=== PATIENT | male | born 1965 | race Caucasian/White ===

== ENCOUNTER 2019-07-14 15:58 | Inpatient (IN) | payer MEDICAID ==
[~2019-07-14] VITALS: Ht 177.8 cm; Wt 75.1 kg
[~2019-07-14 15:58] MED LIST: PERCOCET 5-3251 EACH
[2019-07-14 16:04] VITALS: BP 124/97
[2019-07-14] MEDS ORDERED: KLOR-CON M2020 MEQ PO (16:10)
[2019-07-14] MEDS ORDERED: SPIRONOLACTONE25 MG PO (16:10)
[2019-07-14] MEDS ORDERED: LOVASTATIN 20 M20 MG PO (16:11)
[2019-07-14 16:23] LABS: HEMATOCRIT 43.6 % (42.0-52.0); HEMOGLOBIN 14.6 gm/dL (14.0-18.0); MCH 30.6 pg (26.0-34.0); MCHC 33.6 g/dL (28.0-37.0); MCV 91.3 fL (80.0-100.0); MPV 9.5 fl. (7.2-11.1); NUCLEATED RBCS 0 /100WBC; PLATELET COUNT* 132 thou/uL (150-400); RBC 4.77 mil/uL (4.50-6.00); RDW-CV 17.1 % (10.5-14.5); WBC 5.9 thou/uL (4.0-11.0)
[2019-07-14 16:32] LABS: CALCIUM 8.5 mg/dL (8.5-10.1); CREATININE 1.3 mg/dL (0.6-1.3); POTASSIUM 4.7 mmol/L (3.5-5.1)
[2019-07-14 16:34] LABS: APTT 27.1 Seconds (25.0-31.3); INR 1.2; PROTIME 11.9 Seconds (9.20-11.50)
[2019-07-14 16:46] LABS: ALBUMIN 3.2 g/dL (3.4-5.0); CK-MB MASS 2.5 ng/mL (<0.5-3.6); MAGNESIUM 1.6 mg/dL (1.8-2.4); TOTAL BILIRUBIN 1.2 mg/dL (<0.1-1.0); TOTAL PROTEIN 7.1 g/dL (6.4-8.2)
[2019-07-14 17:08] LABS: ABSOLUTE EOSINOPHILS 0.4 thou/uL (0.0-0.7); ABSOLUTE LYMPHOCYTES 1.2 thou/uL (0.8-5.3); ABSOLUTE MONOCYTES 0.7 thou/uL (0.0-1.2); ABSOLUTE NEUTROPHILS 3.6 thou/uL (1.6-8.1); ATYPICAL LYMPHS 18 %; PLATELET ESTIMATE ADEQUATE
[2019-07-14 18:25] VITALS: BP 125/80
[2019-07-14 18:52] VITALS: BP 122/89
--- NOTE | 2019-07-14 18:55 | NUR ---
VSS, ASSUMED CARE OF PT FROM ER, ASSESSMENT PRFORMED, BUT HAVE ONLY CHARTED, ON H&P, PART 3 ASSESSMENT CHARTING LEFT FOR NIGHT RN, PT IS A&O4 AND UP ADLIB, DENIES ANY PAIN, IS TRACING SR ON THE MONITOR, WILL FOLLOW WITH PLAN OF CARE,
[2019-07-14 20:00] VITALS: BP 127/88
[2019-07-15 00:48] VITALS: BP 130/91
[2019-07-15 04:00] VITALS: BP 140/103
--- NOTE | 2019-07-15 05:10 | NUR ---
PT HAS BEEN ABLE TO EXPRESS HIS NEEDS TO STAFF EFFECTIVELY UP TO THIS TIME. HE HAS DENIED THE NEED FOR PAIN MEDICATION UP TO THIS TIME. HE HAS BEEN NPO SINCE MIDNIGHT, EXCEPT FOR SIPS WITH MEDS, FOR A CARDIOLOGY CONSULT THIS MORNING. BP HIGH THIS AM; PAGED WITH ORDER RECEIVED PENDING PHARMACY VERIFICATION.
[2019-07-15 05:22] LABS: CALCIUM 9.5 mg/dL (8.5-10.1); CREATININE 1.5 mg/dL (0.6-1.3); MAGNESIUM 1.7 mg/dL (1.8-2.4); POTASSIUM 4.7 mmol/L (3.5-5.1)
[2019-07-15 08:27] VITALS: BP 128/97
--- NOTE | 2019-07-15 11:13 | NUR ---
Pt is A&O. Resides at home with his family. Independent. Pt uses a cane for mobility. Pt states that he also has a Life Vest. No hx of HH or SNF. Goal is home at in, no needs anticipated. Following.
[2019-07-15 11:51] VITALS: BP 113/76
--- NOTE | 2019-07-15 13:20 | NUR ---
VSS, ASSUMED CARE IN THE AM, ASSESSMENT PERFORMED AND CHARTED, FALL PRECAUTIONS IN PLACE AND CALL LIGHT IN REACH, PT IS A&O4 UP AD JORGE, AND DENIES ANY PAIN, PT IS ON RA, TRACING SR WITH BBB, PT GOLA IS TO MEET WITH [facility] AND TKAE EXTRA FLUID OFF BODY, WILL FOLLOW WITH PLAN OF CARE.
--- NOTE | 2019-07-15 13:31 | EKG ---
[place] [address] ELECTROCARDIOGRAM REPORT Name: PERCY RODRIGUEZ Room: [address] ADM IN M.R.#: [id number] Admission: 07/14/19 Attend Phys: Rick Baxter Discharge: Date of : 67 Report #: [id number] THIS REPORT FOR: //name// [facility] ED Test Date: 2019-07-14 Test Time: 16:02:03 Pat Name: PERCY RODRIGUEZ Department: Room: [facility] Gender: M Customer Orders Clerk: NIKKI : 1965 Requested By: Khai Still Order Number: [id number] MD: Pedro Godoy Measurements Intervals [place] Rate: 99 P: 81 ME: 171 QRS: 146 QRSD: 157 T: -52 QT: 423 QTc: 543 Interpretive Statements Sinus rhythm Left bundle-branch block No previous ECG available for comparison Electronically Signed On 07-15-2019 13:31:15 CDT by Pedro Godoy [email or web address] <ELECTRONICALLY SIGNED> By: Pedro Godoy MD, [facility] 07/15/19 1331 D: [id number] 01 Pedro Godoy MD, FACC /EPI
[2019-07-15 16:00] VITALS: BP 98/67
[2019-07-15 20:00] VITALS: BP 118/84
[2019-07-16] VITALS (9 sets, daily range): BP systolic 67–120; BP diastolic 50–87
--- NOTE | 2019-07-16 05:02 | NUR ---
ASSUMED PT CARE AT APPROX 1930. PT IS AWAKE AND ORIENTED X4. VSS ON ROOM AIR. 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 ASSESSMENT DONE AND CHARTED. PT C/O GUM AND TEETH PAIN RELIEVED BY PAIN MEDS GIVEN PER NOV. PT REPORTED RELIEF. CALL LIGHT WITHIN REACH. HOURLY ROUNDING DONE FOR PT SAFETY.
[2019-07-16 05:44] LABS: CALCIUM 8.5 mg/dL (8.5-10.1); CREATININE 1.3 mg/dL (0.6-1.3); MAGNESIUM 1.9 mg/dL (1.8-2.4); POTASSIUM 3.8 mmol/L (3.5-5.1)
--- NOTE | 2019-07-16 07:10 | NUR ---
CHANGE OF SHIFT, BEDSIDE REPORT GIVEN PATIENT SEEN AT BEDSIDE, IN BED ASLEEP ASSUMED PATIENT CARE
--- NOTE | 2019-07-16 08:18 | CON ---
[address] [address] CONSULTATION Name: PERCY RODRIGUEZ Room: [address] IN M.R.#: [id number] Admission: 07/14/19 Attend Phys: Rick Baxter Discharge: Date of : 67 Report #: [id number] THIS REPORT FOR: //name// CC: Dr. Odalis Lino [facility] physician/PCP Jessica Chairez INDICATION: Acute on chronic heart failure. HISTORY OF PRESENT ILLNESS: The patient is a 54-year-old gentleman with an ejection fraction estimated to be 10%-15%. In 10/2018, he had a stent placed to the LAD. Followup catheterization in November showed the stent to be patent with 20% in-stent restenosis. He did not have significant occlusive disease in his remaining coronary arteries. Stress testing later this year showed a focal inferoapical defect, but no other fixed or reversible defects. He had severe global hypokinesis. Findings possibly suggestive of a nonischemic cardiomyopathy. The patient does have a history of substance abuse including methamphetamine in the past. He is HIV positive. There has been a history of noncompliance with medications. The patient has had increasing shortness of breath, orthopnea and paroxysmal nocturnal dyspnea over the last several days. He was seen in the Emergency Room and felt to be in acute heart failure. He was admitted for further treatment. He denies any chest pain. Troponins have been unremarkable. A recent outside echocardiogram shows an EF of 10%-15% with moderate mitral insufficiency and cardiomegaly. He is without other cardiac complaint at this time. PAST MEDICAL HISTORY: 1. Coronary artery disease as outlined above. 2. Cardiomyopathy, for the most part appears to be a nonischemic myopathy. 3. Hyperlipidemia, on statin agent. 4. HIV positive. 5. History of syphilis. FAMILY HISTORY: The patient's father had cancer. The patient's brother had a heart attack. The patient's mother had breast cancer. SOCIAL HISTORY: The patient is disabled. He is . Drinks alcohol rarely, smokes a pack of cigarettes daily. Has a history of polysubstance abuse. ALLERGIES: None documented. HOME MEDICATIONS: Lovastatin 20 mg daily, potassium chloride 20 mEq daily, spironolactone 25 mg daily, Lasix 20 mg daily, Percocet 5/325 [place] [address] CONSULTATION Name: PERCY RODRIGUEZ Room: [address]#: [id number] Admission: 07/14/19 Attend Phys: Rick Baxter Discharge: Date of : 67 Report #: [id number] REVIEW OF SYSTEMS: A 14-point review of systems is positive for orthopnea, paroxysmal nocturnal dyspnea, and dyspnea on exertion as well as a recent rash on his back; otherwise, unremarkable. PHYSICAL EXAMINATION: VITAL SIGNS: Blood pressure 128/97, pulse 92 and regular. GENERAL: This is a thin, pleasant gentleman in no distress. Mood and affect appropriate. HEENT: The patient is wearing glasses. Extraocular muscles intact. Mucous membranes are moist. NECK: Shows no jugular venous distention. There are no carotid bruits. CHEST: Reveals clear lung ricardo. CARDIOVASCULAR: Reveals a regular rhythm. I do not appreciate gallop or murmur. ABDOMEN: Reveals normal bowel sounds. The abdomen is soft, nontender. EXTREMITIES: Shows no edema. Peripheral pulses palpable. SKIN: Dry. A 12-lead EKG shows sinus tachycardia with left bundle branch block. LABORATORY DATA: Reviewed. White blood cell count 5.9, hemoglobin 14.6, platelet count 132,000. Electrolytes within normal limits. BUN 22, creatinine 1.5, serum glucose 95. Troponins less than 0.06 on 3 separate occasions. Chest x-ray shows cardiomegaly without obvious pulmonary vascular congestion. IMPRESSION AND RECOMMENDATIONS: 1. Acute on chronic systolic heart failure. The patient has responded nicely to IV Lasix. We will adjust heart failure medications. At this point, I would like to start Entresto 24/26 mg 1 tablet daily. I will continue his carvedilol at reduced dose of 3.125 mg twice daily. Will likely need increased dose of Lasix on discharge of approximately 40 mg. Continue spironolactone at 25 mg. 2. Coronary artery disease with stenting in 10/2018. Continue Plavix and aspirin. Stress testing after recent stenting shows a focal inferoapical defect with no other evidence of infarct or ischemia. 3. Hyperlipidemia. Continue statin agent. 4. Tobacco use. Smoking cessation advised. 5. Human immunodeficiency virus positive per primary physician. <ELECTRONICALLY SIGNED> By: Pedro Godoy MD, FACC 07/16/19 0818 1126 [id number] Noel Godoy MD, FACC /nt
[2019-07-16] MEDS ORDERED: NITROGLYCERIN0.4 MG SUBLING (09:52)
[2019-07-16] MEDS ORDERED: LASIX 40 MG TAB40 MG PO (09:53)
[2019-07-16] MEDS ORDERED: LISINOPRIL2.5 MG PO (09:54)
[2019-07-16] MEDS ORDERED: PLAVIX 75 MG TA75 MG PO (09:55)
[2019-07-16] MEDS ORDERED: SYMTUZA 800-151 EACH PO (09:56)
--- NOTE | 2019-07-16 13:26 | NUR ---
Met with patient to discuss heart failure medication. Discussion focused primarily on furosemide, carvedilol and sacubitril/valsartan. We reviewed rationale for therapy and importance of compliance with regimen prescribed. We reviewed possible side effects and potential management strategies. Pt expressed understanding of issues discussed. Left medication information sheet with patient. Provided pharmacy contact information for any further questions or issues. thank you.
--- NOTE | 2019-07-16 16:00 | NUR ---
DR KENNY RETURNED CALL REGARDING PENDING DISCHARGE ORDERS TO KEEP PATIENT UNTIL TOMORROW
[2019-07-17] VITALS: BP 90/66
[2019-07-17 04:00] VITALS: BP 106/78
--- NOTE | 2019-07-17 04:29 | NUR ---
ASSUMED PT CARE AT APPROX 1930. PT IS AWAKE AND ORIENTED X4. VSS ON ROOM AIR. 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 PT DENIES PAIN OF THIS TIME. ASSESSMENT DONE AND CHARTED. PT IS ABLE TO SLEEP MOST OF THE NIGHT. CALL LIGHT WITHIN REACH. HOURLY ROUNDING DONE FOR PT SAFETY.
[2019-07-17 08:00] VITALS: BP 94/60
[2019-07-17] MEDS ORDERED: CARVEDILOL3.125 MG PO (09:14)
[2019-07-17] MEDS ORDERED: ENTRESTO 24 MG1 EACH PO (09:14)
[2019-07-17] MEDS ORDERED: ATORVASTATIN CA20 MG PO (09:14)
[2019-07-17 09:24] LABS: CALCIUM 8.8 mg/dL (8.5-10.1); CREATININE 1.3 mg/dL (0.6-1.3); MAGNESIUM 1.7 mg/dL (1.8-2.4); POTASSIUM 3.9 mmol/L (3.5-5.1)
--- NOTE | 2019-07-17 13:05 | NUR ---
ASSUMED PT CARE AT 0730. ASSESSMENT COMPLETED CHARTED. ABLE TO MAKE NEEDS KNOWN. UP AD JORGE IN ROOM. NO C/O PAIN OR DISCOMFORT. RESTING IN BED MOST OF THE DAY. PT DISCHARGE APPROVED, GAVE DISCHARGE PAPERWORK, TOOK OUT IV, OFF HEART MONITOR. PT WALKED OUT OF HOSPITAL WITHOUT GETTING NURSES HELP. NO COMMENTS, QUESTIONS, OR CONCERNS.
== END 2019-07-17 12:30 | disposition home or self-care (01) | DRG 292 ==
LOC: M.ERS 15:58 → M.2W 16:56 → M.TBA-ER 16:56 → M.2W 18:27
PROVIDERS: Family Medicine; Internal Medicine; ADMIT Internal Medicine
DX: I50.23 Acute on chronic systolic (congestive) heart failure (principal); I42.9 Cardiomyopathy, unspecified; E78.00 Pure hypercholesterolemia, unspecified; F17.210 Nicotine dependence, cigarettes, uncomplicated; I25.10 Atherosclerotic heart disease of native coronary artery without angina pectoris; E78.5 Hyperlipidemia, unspecified; Z21 Asymptomatic human immunodeficiency virus [HIV] infection status; I95.9 Hypotension, unspecified; Z79.899 Other long term (current) drug therapy; Z82.49 Family history of ischemic heart disease and other diseases of the circulatory system; Z80.8 Family history of malignant neoplasm of other organs or systems; Z71.6 Tobacco abuse counseling; Z95.5 Presence of coronary angioplasty implant and graft; Z28.21 Immunization not carried out because of patient refusal

== ENCOUNTER 2019-10-27 15:09 | Inpatient (IN) | payer MEDICAID ==
[~2019-10-27] VITALS: Ht 182.9 cm; Wt 78.5 kg
[~2019-10-27 15:09] MED LIST changes: +ATORVASTATIN CA20 MG PO; +CARVEDILOL3.125 MG PO; +ENTRESTO 24 MG1 EACH PO; +KLOR-CON M2020 MEQ PO; +LASIX 40 MG TAB40 MG PO; +LISINOPRIL2.5 MG PO; +LOVASTATIN 20 M20 MG PO; +NITROGLYCERIN0.4 MG SUBLING; +PLAVIX 75 MG TA75 MG PO; +SPIRONOLACTONE25 MG PO; +SYMTUZA 800-151 EACH PO
[2019-10-27 15:19] VITALS: BP 131/100
[2019-10-27 15:49] LABS: HEMATOCRIT 45.1 % (42.0-52.0); HEMOGLOBIN 15.5 gm/dL (14.0-18.0); MCH 30.6 pg (26.0-34.0); MCHC 34.3 g/dL (28.0-37.0); MCV 89.2 fL (80.0-100.0); MPV 8.9 fl. (7.2-11.1); NUCLEATED RBCS 0 /100WBC; PLATELET COUNT* 118 thou/uL (150-400); RBC 5.06 mil/uL (4.50-6.00); WBC 5.3 thou/uL (4.0-11.0)
[2019-10-27 15:58] LABS: APTT 26.1 Seconds (25.0-31.3); CALCIUM 8.3 mg/dL (8.5-10.1); CREATININE 1.3 mg/dL (0.6-1.3); INR 1.1; POTASSIUM 4.2 mmol/L (3.5-5.1); PROTIME 11.1 Seconds (9.20-11.50)
[2019-10-27 16:09] LABS: ALBUMIN 3.2 g/dL (3.4-5.0); TOTAL BILIRUBIN 0.5 mg/dL (<0.1-1.0); TOTAL PROTEIN 7.3 g/dL (6.4-8.2)
[2019-10-27 16:19] LABS: ABSOLUTE BASOPHILS 0.1 thou/uL (0.0-0.2); ABSOLUTE EOSINOPHILS 0.3 thou/uL (0.0-0.7); ABSOLUTE MONOCYTES 0.8 thou/uL (0.0-1.2); ABSOLUTE NEUTROPHILS 3.1 thou/uL (1.6-8.1); ATYPICAL LYMPHS 8 %
[2019-10-27 16:20] LABS: PLATELET ESTIMATE DECREASED
[2019-10-27 16:55] LABS: SALICYLATE 2.7 mg/dL (2.8-20.0)
[2019-10-27 16:56] LABS: ACETAMINOPHEN < 2 ug/mL (10-30)
[2019-10-27 23:24] VITALS: BP 111/72
[2019-10-28 04:00] VITALS: BP 119/79
[2019-10-28 08:00] VITALS: BP 91/41
[2019-10-28] MEDS ORDERED: BACTRIM DS TAB1 EAC1 PO (08:48)
[2019-10-28 12:13] LABS: CHOLESTEROL 133 mg/dL (<200); HDL CHOLESTEROL 25 mg/dL (>40); LDL CHOLESTEROL 83 mg/dL (<100); TC:HDL 5.3 Ratio (Not establshd); TRIGLYCERIDE 128 mg/dL (<150); VLDL 26 mg/dL (<40)
[2019-10-28 12:14] LABS: SERUM ASSESSMENT Clear
--- NOTE | 2019-10-28 12:47 | EKG ---
[place] [address] ELECTROCARDIOGRAM REPORT Name: PERCY RODRIGUEZ Room: [address] ADM IN .R.#: [id number] Admission: 10/27/19 Attend Phys: Ludwin Hayes, Discharge: Date of : 67 Report #: [id number] THIS REPORT FOR: //name// [facility] ED Test Date: 2019-10-27 Test Time: 15:51:27 Pat Name: PERCY RODRIGUEZ Department: Room: [facility] Gender: M Wind Up Operator: CLYDE : 1965 Requested By: Khai Still Order Number: [id number] MD: Tyson Delgadillo Measurements Intervals [place] Rate: 93 P: 86 MD: 183 QRS: -74 QRSD: 129 T: 99 QT: 402 QTc: 501 Interpretive Statements Sinus rhythm Probable left atrial enlargement Left anterior fasicular block anterior q waves noted Compared to ECG 07/14/2019 16:02:03 No significant changes Electronically Signed On 10-28-2019 12:46:45 GRIEF COUNSELLOR by Tyson Delgadillo [email or web address] <ELECTRONICALLY SIGNED> By: Tyson Delgadillo MD, FACCorey 10/28/19 1246 1551 1551 Tyson Delgadillo MD, [facility] /EPI
--- NOTE | 2019-10-28 15:47 | 2DMMODE ---
[facility] [address] [place] [address] 2 D/M-MODE ECHOCARDIOGRAM Name: PERCY RODRIGUEZ Room: [address] IN [facility]#: [id number] Admission: 10/27/19 Attend Phys: Ludwin Oneal Discharge: Date of : 67 Date of Service: 10/28/19 1547 Report #: [id number] THIS REPORT FOR: //name// APPROVED REPORT Study performed: 10/28/2019 11:48:15 EXAM: Limited 2D Echocardiogram Patient Location: In-Patient Room #: [facility] BSA: 2.03 HR: 65 bpm BP: 96/60 mmHg Other Information Study Quality: Good Indications Dyspnea Left Ventricle Left ventricle is moderately dilated. There is normal left ventricular wall thickness. Left ventricular ejection fraction is severely decreased. LVEF is 15-20%. Right Ventricle Right ventricle is moderately dilated. Atria Left atrium is mildly dilated. Right atrium is mildly dilated. Pulmonic Valve Pulmonic valve is not well visualized. <Conclusion> Left ventricle is moderately dilated. Left ventricular ejection fraction is severely decreased. LVEF is 15-20%. Right ventricle is moderately dilated. [facility] [address] [place] [address] 2 D/M-MODE ECHOCARDIOGRAM Name: PERCY RODRIGUEZ Room: [address] IN [facility].#: [id number] Admission: 10/27/19 Attend Phys: Ludwin Oneal Discharge: Date of : 67 Date of Service: 10/28/19 154 Report #: [id number] Left atrium is mildly dilated. Right atrium is mildly dilated. <ELECTRONICALLY SIGNED> By: Pedro Godoy MD, FACC 10/28/19 1547 46 46 Pedro Godoy MD, FACC /INF
[2019-10-28 16:52] VITALS: BP 111/68
[2019-10-28 20:00] VITALS: BP 100/69
[2019-10-29] VITALS (9 sets, daily range): BP systolic 77–108; BP diastolic 54–79
[2019-10-29 06:53] LABS: HEMATOCRIT 46.8 % (42.0-52.0); HEMOGLOBIN 16.2 gm/dL (14.0-18.0); MCH 30.6 pg (26.0-34.0); MCHC 34.6 g/dL (28.0-37.0); MCV 88.5 fL (80.0-100.0); MPV 8.8 fl. (7.2-11.1); RBC 5.29 mil/uL (4.50-6.00); RDW-CV 15.3 % (10.5-14.5); WBC 13.3 thou/uL (4.0-11.0)
[2019-10-29 07:12] LABS: CALCIUM 7.9 mg/dL (8.5-10.1); CREATININE 1.4 mg/dL (0.6-1.3); MAGNESIUM 1.7 mg/dL (1.8-2.4); POTASSIUM 4.6 mmol/L (3.5-5.1)
[2019-10-29 10:38] LABS: URINE BILIRUBIN NEGATIVE (Negative); URINE BLOOD 3+ (Negative); URINE CLARITY CLEAR; URINE COLOR YELLOW; URINE GLUCOSE-RANDOM NEGATIVE (Negative); URINE KETONES NEGATIVE (Negative); URINE LEUKOCYTES-REFLEX NEGATIVE (Negative); URINE NITRITE-REFLEX NEGATIVE (Negative); URINE PROTEIN NEGATIVE (Negative); URINE UROBILINOGEN 0.2 E.U./dl (0.2-1.0)
[2019-10-29 10:48] LABS: AMP/METHAMP Negative (Negative); BARBITURATES Negative (Negative); BENZODIAZEPINES Negative (Negative); COCAINE Negative (Negative); METHADONE Negative (Negative); OPIATES Negative (Negative); PCP Negative (Negative); THC Negative (Negative)
[2019-10-29 10:52] LABS: BACTERIA-REFLEX 1-9 Few /HPF (None Seen); CASTS None Seen /LPF (None Seen); CRYSTALS None Seen /LPF (None Seen); MUCUS None Seen strn/LPF (None Seen); SQUAMOUS 4-10 Moderate /LPF (0-3); URINE RBC 3-10 Few /HPF (0-2); URINE WBC-REFLEX 0-5 Rare /HPF (0-5)
--- NOTE | 2019-10-29 12:22 | CON ---
[address] [address] CONSULTATION Name: PERCY RODRIGUEZ Room: [address] IN .R.#: [id number] Admission: 10/27/19 Attend Phys: Ludwin Hayes, Discharge: Date of : 67 Report #: [id number] THIS REPORT FOR: //name// CC: [facility] physician/PCP Ludwin Hayes DATE OF SERVICE: 10/28/2019 INFECTIOUS DISEASE CONSULTATION ATTENDING PHYSICIAN: Ludwin Hayes MD REASON FOR EVALUATION: Admitted with progressive dyspnea over the course of the last couple of weeks, was found to be hypoxemic, although chest x-ray was otherwise unremarkable. Of note, he does have a history of HIV diagnosed 15-20 years ago. More recently, over the course of the last several weeks, has had stopped all his medicines. He notes he typically has a low CD4 count, although he often with treatment has a nondetectable viral load. Due to depression, he stopped not only his antiviral medicines, also he has had known history of coronary artery disease with previous myocardial infarction, has cardiomyopathy, and is felt to have a component of congestive heart failure as well as a contributing factor to the dyspnea. He has been diuresed. He is not encephalopathic at this time. Denies any significant abdominal-related complaints. He notes he does have a recent weight gain, which he attributed in part to increasing p.o. intake. He attributes some degree of anorexia to his medical regimen. Additionally, has a history of syphilis. He describes being hospitalized, treated with IV penicillin. He noted followup studies that were still elevated. He has not pursued since that time. He does have a penile lesion, anal bumps as well without recent sexual activity. ALLERGIES: None known. MEDICATIONS: Include sacubitril-valsartan combination, atorvastatin, trimethoprim-sulfamethoxazole 1 daily, furosemide, famotidine, carvedilol, Symtuza, clopidogrel, spironolactone, p.r.n. analgesics and antiemetics. He is on doxycycline as well. PAST MEDICAL HISTORY: As described above, HIV, I think at some point likely had age-related infection, coronary artery disease with previous stenting, has cardiomyopathy. SOCIAL HISTORY: Smokes cigarettes. No ethanol. Has used marijuana previously. FAMILY HISTORY: Noncontributory. REVIEW OF SYSTEMS: [place] [address] CONSULTATION Name: PERCY RODRIGUEZ Room: [address]#: [id number] Admission: 10/27/19 Attend Phys: Ludwin Hayes, Discharge: Date of : 67 Report #: [id number] PHYSICAL EXAMINATION: GENERAL: He is alert, cooperative, appropriate, is not overtly distressed, appears reasonably well nourished. VITAL SIGNS: Temperature 98.1, pulse 65, respirations 16, blood pressure 196/60. SKIN: Warm, dry. No rashes. HEENT: Normocephalic. Extraocular muscles intact. NECK: Supple. LUNGS: Scattered coarse breath sounds. HEART: Regular. I do not appreciate a murmur. ABDOMEN: Soft, nontender, nondistended. EXTREMITIES: No cyanosis. LABORATORY DATA: Chest x-ray second of two shows no acute process. TSH elevated at 7.072. Blood cultures sterile thus far. Troponin level less than 0.06 serially in the course of three. CBC: White count of 5.3, H and H of 15.5 and 45.1, platelets of 118. Differential generally unremarkable. Electrolytes: Sodium 137, potassium 4.2, chloride 105, bicarbonate 26, anion gap of 6, BUN and creatinine of 17 and 1.3, glucose of 133. Albumin 3.2, total protein 7.3, estimated GFR 58. LFTs unremarkable. Lactic acid 1.3. ASSESSMENT AND PLAN: Respiratory distress secondary to lower respiratory tract infection, certainly was clearly worse, may be a combination of volume excess as well in terms of the human immunodeficiency virus. We will try to obtain records from [facility]. Do additional labs including CD4 count, syphilis. He notes he was successfully treated for hepatitis C as well. See how he does clinically over the course of next 24-48 hours. His results are pending as well. <ELECTRONICALLY SIGNED> By: Miah Matamoros MD 10/29/19 1222 1238 1448Joebony Matamoros MD /nt
[2019-10-30] VITALS: BP 82/59
[2019-10-30 00:16] LABS: INFLUENZA A ANTIGEN Negative (Negative); INFLUENZA B ANTIGEN Negative (Negative)
[2019-10-30 04:00] VITALS: BP 90/63
[2019-10-30 05:59] LABS: HEMATOCRIT 51.4 % (42.0-52.0); HEMOGLOBIN 17.4 gm/dL (14.0-18.0); MCH 30.2 pg (26.0-34.0); MCHC 33.8 g/dL (28.0-37.0); MCV 89.2 fL (80.0-100.0); MPV 9.1 fl. (7.2-11.1); RBC 5.76 mil/uL (4.50-6.00); RDW-CV 15.1 % (10.5-14.5); WBC 8.3 thou/uL (4.0-11.0)
[2019-10-30 06:03] LABS: CALCIUM 7.9 mg/dL (8.5-10.1); CREATININE 1.6 mg/dL (0.6-1.3); MAGNESIUM 1.7 mg/dL (1.8-2.4)
[2019-10-30 08:00] VITALS: BP 86/65
[2019-10-30 12:00] VITALS: BP 73/48
[2019-10-30 13:28] VITALS: BP 92/61
[2019-10-30 19:40] VITALS: BP 88/58
[2019-10-31] VITALS: BP 103/70
[2019-10-31 05:39] LABS: CALCIUM 7.9 mg/dL (8.5-10.1); CREATININE 1.7 mg/dL (0.6-1.3); POTASSIUM 4.8 mmol/L (3.5-5.1)
[2019-10-31 08:00] VITALS: BP 94/66
[2019-10-31] MEDS ORDERED: ASA81BEC PO (11:38)
[2019-10-31 11:42] VITALS: BP 94/64
[2019-10-31] MEDS ORDERED: DORYX MPC120 MG PO (11:43)
== END 2019-10-31 13:20 | disposition home health service (06) | DRG 291 ==
LOC: M.ERS 15:09 → M.2W 17:12 → M.TBA-ER 17:12 → M.2W 22:16
PROVIDERS: Family Medicine; Internal Medicine; Physician Assistant; Registered Nurse; ADMIT Family Medicine
DX: I11.0 Hypertensive heart disease with heart failure (principal); J96.01 Acute respiratory failure with hypoxia; N17.9 Acute kidney failure, unspecified; B20 Human immunodeficiency virus [HIV] disease; F32.9 Major depressive disorder, single episode, unspecified; I50.23 Acute on chronic systolic (congestive) heart failure; I25.10 Atherosclerotic heart disease of native coronary artery without angina pectoris; F12.90 Cannabis use, unspecified, uncomplicated; F17.210 Nicotine dependence, cigarettes, uncomplicated; E78.5 Hyperlipidemia, unspecified; I42.8 Other cardiomyopathies; I27.20 Pulmonary hypertension, unspecified; I34.0 Nonrheumatic mitral (valve) insufficiency; N48.9 Disorder of penis, unspecified; E87.5 Hyperkalemia; I95.9 Hypotension, unspecified; Z79.899 Other long term (current) drug therapy; Z91.19 Patient's noncompliance with other medical treatment and regimen; I25.2 Old myocardial infarction; Z95.5 Presence of coronary angioplasty implant and graft

== ENCOUNTER 2019-12-30 12:38 | Inpatient (IN) | payer MEDICAID ==
[~2019-12-30] VITALS: Ht 180.3 cm; Wt 87.0 kg
[~2019-12-30 12:38] MED LIST changes: +ASA81BEC PO; +BACTRIM DS TAB1 EAC1 PO; +DORYX MPC120 MG PO
[2019-12-30 12:44] VITALS: BP 122/92
[2019-12-30 13:22] LABS: ABSOLUTE BASOPHILS 0.1 thou/uL (0.0-0.2); ABSOLUTE EOSINOPHILS 0.4 thou/uL (0.0-0.7); ABSOLUTE LYMPHOCYTES 0.8 thou/uL (0.8-5.3); ABSOLUTE MONOCYTES 1.7 thou/uL (0.0-1.2); ABSOLUTE NEUTROPHILS 6.8 thou/uL (1.6-8.1); BASOPHILS 1.1 %; EOSINOPHILS 3.9 %; HEMATOCRIT 43.3 % (42.0-52.0); HEMOGLOBIN 15.1 gm/dL (14.0-18.0); LYMPHOCYTES 7.8 %; MCH 31.1 pg (26.0-34.0); MCHC 34.9 g/dL (28.0-37.0); MCV 88.9 fL (80.0-100.0); MONOCYTES 17.4 %; MPV 7.7 fl. (7.2-11.1); NUCLEATED RBCS 0 /100WBC; PLATELET COUNT* 254 thou/uL (150-400); POLYS 69.8 %; RBC 4.87 mil/uL (4.50-6.00); RDW-CV 16.7 % (10.5-14.5); WBC 9.7 thou/uL (4.0-11.0)
[2019-12-30 13:27] LABS: CALCIUM 8.2 mg/dL (8.5-10.1); CREATININE 1.4 mg/dL (0.6-1.3); POTASSIUM 4.2 mmol/L (3.5-5.1)
[2019-12-30 13:30] LABS: APTT 27.2 Seconds (25.0-31.3); PROTIME 10.2 Seconds (9.20-11.50)
[2019-12-30 13:41] LABS: ALBUMIN 3.1 g/dL (3.4-5.0); CK-MB MASS 2.7 ng/mL (<0.5-3.6); MAGNESIUM 1.4 mg/dL (1.8-2.4); TOTAL BILIRUBIN 0.5 mg/dL (<0.1-1.0); TOTAL PROTEIN 7.6 g/dL (6.4-8.2)
--- NOTE | 2019-12-30 15:39 | EKG ---
[place] [address] ELECTROCARDIOGRAM REPORT Name: PERCY RODRIGUEZ Room: [facility]#: [id number] Admission: 12/30/19 Attend Phys: Discharge: Date of : 67 Date of Service: 12/30/19 1245 Report #: [id number] THIS REPORT FOR: //name// [facility] ED Test Date: 2019-12-30 Test Time: 12:45:31 Pat Name: PERCY RODRIGUEZ Department: Room: Gender: Internship: CLYDE : 1965 Requested By: Nilesh Bee Order Number: [id number] MD: Pedro Godoy Measurements Intervals [place] Rate: 108 P: 86 SD: 162 QRS: -70 QRSD: 139 T: 105 QT: 382 QTc: 512 Interpretive Statements Sinus tachycardia Probable left atrial enlargement Left bundle branch block Compared to ECG 10/27/2019 15:51:27 Left bundle-branch block now present Sinus rhythm no longer present Q waves no longer present Electronically Signed On 12-30-2019 15:38:03 CDT by Pedro Godoy [email or web address] <ELECTRONICALLY SIGNED> By: Pedro Godoy MD, FACC 12/30/19 1538 1245 1245 Pedro Godoy MD, [facility] /EPI
[2019-12-30 16:20] VITALS: BP 114/81
[2019-12-30 16:39] VITALS: BP 113/83
[2019-12-30 20:00] VITALS: BP 97/71
[2019-12-30] MEDS ORDERED: CETIRIZINE HCL5 MG PO (22:06)
[2019-12-31] VITALS (8 sets, daily range): BP systolic 90–116; BP diastolic 63–87
[2019-12-31 03:52] LABS: ABSOLUTE EOSINOPHILS 0.2 thou/uL (0.0-0.7); ABSOLUTE LYMPHOCYTES 0.7 thou/uL (0.8-5.3); ABSOLUTE NEUTROPHILS 8.7 thou/uL (1.6-8.1); BASOPHILS 0.2 %; EOSINOPHILS 2.1 %; HEMOGLOBIN 14.6 gm/dL (14.0-18.0); LYMPHOCYTES 6.1 %; MCH 30.1 pg (26.0-34.0); MCHC 33.9 g/dL (28.0-37.0); MCV 88.9 fL (80.0-100.0); MONOCYTES 16.8 %; MPV 8.1 fl. (7.2-11.1); NUCLEATED RBCS 0 /100WBC; PLATELET COUNT* 255 thou/uL (150-400); POLYS 74.8 %; RBC 4.83 mil/uL (4.50-6.00); RDW-CV 16.9 % (10.5-14.5); WBC 11.7 thou/uL (4.0-11.0)
[2019-12-31 03:56] LABS: CALCIUM 7.9 mg/dL (8.5-10.1); CREATININE 1.4 mg/dL (0.6-1.3); MAGNESIUM 1.7 mg/dL (1.8-2.4); PHOSPHORUS* 2.9 mg/dL (2.5-4.9); POTASSIUM 4.8 mmol/L (3.5-5.1); TOTAL BILIRUBIN 0.7 mg/dL (<0.1-1.0); TOTAL PROTEIN 7.3 g/dL (6.4-8.2)
[2019-12-31 04:25] LABS: AMP/METHAMP POSITIVE (Negative); BARBITURATES Negative (Negative); BENZODIAZEPINES Negative (Negative); COCAINE Negative (Negative); METHADONE Negative (Negative); OPIATES POSITIVE (Negative); PCP Negative (Negative); THC Negative (Negative)
--- NOTE | 2019-12-31 12:25 | 2DMMODE ---
[place] [address] 2 D/M-MODE ECHOCARDIOGRAM Name: PERCY RODRIGUEZ Room: [address] ADM IN [facility]#: [id number] Admission: 12/30/19 Attend Phys: Lele lazo Sa Discharge: Date of : 67 Date of Service: 12/31/19 1223 Report #: [id number] THIS REPORT FOR: cc: FAM - No family physician/PCP FAM - No family physician/PCP Jose Santillan MD [facility] ~ APPROVED REPORT Study performed: 12/31/2019 10:07:13 EXAM: Limited 2D Echocardiogram Patient Location: In-Patient Room #: [facility] Status: routine BSA: 2.07 HR: 98 bpm BP: 105/80 mmHg Rhythm: NSR Other Information Study Quality: Good Indications Dyspnea Chest Pain Tricuspid Valve RAP Estimate: 5.00 mmHg TR Peak Gr.: 22.95 mmHg RVSP: 28.00 mmHg PA Pressure: 28.00 mmHg Left Ventricle Left ventricle is moderately dilated. There is severe global hypokinesis of the left ventricle. There is normal left ventricular wall thickness. Left ventricular ejection fraction is severely decreased. LVEF is 15-20%. Right Ventricle Right ventricle is moderately dilated. The right ventricular systolic function is normal. Atria Left atrium is mildly dilated. Right [place] [address] 2 D/M-MODE ECHOCARDIOGRAM Name: PERCY RODRIGUEZ Room: [address] IN M.R.#: [id number] Admission: 12/30/19 Attend Phys: Lele lazo Sa Discharge: Date of : 67 Date of Service: 12/31/19 1223 Report #: [id number] Aortic Valve Mild aortic valve sclerosis. Mitral Valve The mitral valve is normal in structure. Tricuspid Valve The tricuspid valve is normal in structure. No pulmonary hypertension. Trace tricuspid regurgitation. Pulmonic Valve The pulmonary valve is normal in structure. Great Vessels The aortic root is normal in size. IVC is normal in size and collapses >50% with inspiration. Pericardium There is no pericardial effusion. <Conclusion> Left ventricle is moderately dilated. There is normal left ventricular wall thickness. Left ventricular ejection fraction is severely decreased. LVEF is 15-20%. Right ventricle is moderately dilated. Left atrium is mildly dilated. Right atrium is mildly dilated. Mild aortic valve sclerosis. The mitral valve is normal in structure. The tricuspid valve is normal in structure. IVC is normal in size and collapses >50% with inspiration. There is no pericardial effusion. There is severe global hypokinesis of the left ventricle. <ELECTRONICALLY SIGNED> By: Jose Santillan MD, FACC 12/31/19 122 122 22 Jose Santillan MD, [facility] /INF
--- NOTE | 2019-12-31 13:11 | EKG ---
[place] [address] ELECTROCARDIOGRAM REPORT Name: PERCY RODRIGUEZ Room: [address] ADM IN M.R.#: [id number] Admission: 12/30/19 Attend Phys: Lele lazo Sa Discharge: Date of : 67 Date of Service: 12/31/19 0023 Report #: [id number] THIS REPORT FOR: //name// [facility] Test Date: 2019-12-31 Test Time: 00:23:39 Pat Name: PERCY RODRIGUEZ Department: Room: [address] Gender: M Impregnator Operator: JCRUZ : 1965 Requested By: Lele Miller Order Number: [id number] MD: Jose Santillan Measurements Intervals [place] Rate: 114 P: 195 [place]: 31 QRS: 69 QRSD: 175 T: 66 QT: 474 QTc: 654 Interpretive Statements Sinus or ectopic atrial tachycardia LBBB Prolonged QT interval Compared to ECG 12/30/2019 12:45:31 Prolonged QT interval now present Sinus tachycardia persists Electronically Signed On 12-31-2019 13:09:34 CDT by Jose Santillan [email or web address] <ELECTRONICALLY SIGNED> By: Jose Santillan MD, [facility] 12/31/19 1309 0023 0023 Jose Santillan MD, [facility] /EPI
[2020-01-01 03:55] LABS: HEMATOCRIT 40.4 % (42.0-52.0); HEMOGLOBIN 13.9 gm/dL (14.0-18.0); MCH 30.6 pg (26.0-34.0); MCHC 34.3 g/dL (28.0-37.0); MCV 89.4 fL (80.0-100.0); RBC 4.52 mil/uL (4.50-6.00); RDW-CV 17.3 % (10.5-14.5); WBC 8.3 thou/uL (4.0-11.0)
[2020-01-01 04:19] LABS: ALBUMIN 2.6 g/dL (3.4-5.0); CALCIUM 8.1 mg/dL (8.5-10.1); CREATININE 1.5 mg/dL (0.6-1.3); MAGNESIUM 1.8 mg/dL (1.8-2.4); POTASSIUM 4.6 mmol/L (3.5-5.1)
[2020-01-01 04:29] VITALS: BP 96/65
[2020-01-01 08:00] VITALS: BP 105/70
[2020-01-01 11:45] VITALS: BP 98/69
== END 2020-01-01 14:25 | disposition home or self-care (01) | DRG 291 ==
LOC: M.ERS 12:38 → M.2W 15:37 → M.TBA-ER 15:37 → M.2W 16:10
PROVIDERS: Emergency Medicine; ADMIT Family Medicine
DX: I13.0 Hypertensive heart and chronic kidney disease with heart failure and stage 1 through stage 4 chronic kidney disease, or unspecified chronic kidney disease (principal); I50.43 Acute on chronic combined systolic (congestive) and diastolic (congestive) heart failure; N17.9 Acute kidney failure, unspecified; B20 Human immunodeficiency virus [HIV] disease; I25.10 Atherosclerotic heart disease of native coronary artery without angina pectoris; F17.210 Nicotine dependence, cigarettes, uncomplicated; E83.42 Hypomagnesemia; F41.9 Anxiety disorder, unspecified; F32.9 Major depressive disorder, single episode, unspecified; I34.0 Nonrheumatic mitral (valve) insufficiency; N18.9 Chronic kidney disease, unspecified; T50.995A Adverse effect of other drugs, medicaments and biological substances, initial encounter; Y92.89 Other specified places as the place of occurrence of the external cause; Z95.5 Presence of coronary angioplasty implant and graft; Z82.49 Family history of ischemic heart disease and other diseases of the circulatory system; Z91.14 Patient's other noncompliance with medication regimen; Z71.6 Tobacco abuse counseling

== ENCOUNTER 2020-03-23 17:38 | Inpatient (IN) | payer MEDICAID ==
[~2020-03-23] VITALS: Ht 180.3 cm; Wt 81.0 kg
[~2020-03-23 17:38] MED LIST changes: +CETIRIZINE HCL5 MG PO
[2020-03-23 17:43] VITALS: BP 125/93
[2020-03-23] MEDS ORDERED: CARVEDILOL3.125 MG PO (17:47)
[2020-03-23 18:07] LABS: ABSOLUTE BASOPHILS 0.1 thou/uL (0.0-0.2); ABSOLUTE EOSINOPHILS 0.2 thou/uL (0.0-0.7); ABSOLUTE LYMPHOCYTES 0.8 thou/uL (0.8-5.3); ABSOLUTE NEUTROPHILS 5.2 thou/uL (1.6-8.1); BASOPHILS 0.9 %; EOSINOPHILS 2.7 %; HEMATOCRIT 45.6 % (42.0-52.0); HEMOGLOBIN 15.6 gm/dL (14.0-18.0); LYMPHOCYTES 10.5 %; MCH 31.7 pg (26.0-34.0); MCHC 34.2 g/dL (28.0-37.0); MCV 92.6 fL (80.0-100.0); MONOCYTES 13.8 %; MPV 8.9 fl. (7.2-11.1); NUCLEATED RBCS 0 /100WBC; PLATELET COUNT* 147 thou/uL (150-400); POLYS 72.1 %; RBC 4.92 mil/uL (4.50-6.00); RDW-CV 16.1 % (10.5-14.5); WBC 7.2 thou/uL (4.0-11.0)
[2020-03-23 18:18] LABS: CALCIUM 8.4 mg/dL (8.5-10.1); CREATININE 1.5 mg/dL (0.6-1.3); POTASSIUM 4.6 mmol/L (3.5-5.1)
[2020-03-23 18:19] LABS: APTT 25.9 Seconds (25.0-31.3); INR 1.2; PROTIME 12.4 Seconds (9.20-11.50)
[2020-03-23 18:29] LABS: ALBUMIN 3.1 g/dL (3.4-5.0); TOTAL BILIRUBIN 1.5 mg/dL (<0.1-1.0); TOTAL PROTEIN 7.4 g/dL (6.4-8.2)
[2020-03-23 21:29] VITALS: BP 116/87; BP 125/95
[2020-03-23 22:00] VITALS: BP 130/98
[2020-03-24] VITALS: BP 127/101
[2020-03-24] MEDS ORDERED: CHILDREN'S ASPI81 M1 PO (02:34)
[2020-03-24] MEDS ORDERED: FUROSEMIDE 40 M40 MG PO (02:35)
[2020-03-24 04:00] VITALS: BP 136/103
[2020-03-24 09:00] VITALS: BP 137/95
[2020-03-24 10:25] LABS: AMP/METHAMP Negative (Negative); BARBITURATES Negative (Negative); BENZODIAZEPINES Negative (Negative); COCAINE Negative (Negative); METHADONE Negative (Negative); OPIATES Negative (Negative); PCP Negative (Negative); THC Negative (Negative)
[2020-03-24 12:32] VITALS: BP 139/104
--- NOTE | 2020-03-24 15:48 | 2DMMODE ---
[place] [address] 2 D/M-MODE ECHOCARDIOGRAM Name: PERCY RODRIGUEZ Room: [address] IN .R.#: [id number] Admission: 03/23/20 Attend Phys: Larissa Ma, Discharge: Date of : 67 Date of Service: 03/24/20 1547 Report #: [id number] THIS REPORT FOR: cc: FAM - No family physician/PCP FAM - No family physician/PCP Jose Santillan MD [facility] ~ APPROVED REPORT Study performed: 03/24/2020 13:41:47 EXAM: Comprehensive 2D, Doppler, and color-flow Echocardiogram Patient Location: In-Patient BSA: 1.99 HR: 94 bpm BP: 137/95 mmHg Other Information Study Quality: Good Indications Congestive Heart Failure Dyspnea 2D Dimensions IVSd: 9.27 (7-11mm) LVOT Diam: 19.55 (18-24mm) LVDd: 69.15 mm PWd: 10.40 (7-11mm) Ascending Ao: 31.93 (22-36mm) LVDs: 58.79 (25-40mm) Aortic Root: 31.02 mm Volumes Left Atrial Volume (Systole) LA ESV Index: 28.50 mL/m2 Aortic Valve AoV Peak Peter.: 0.89 m/s AO Peak Gr.: 3.14 mmHg LVOT Max P.18 mmHg AO Mean Gr.: 1.80 mmHg LVOT Mean P.92 mmHg LVOT Max V: 0.74 m/s AO V2 VTI: 12.58 cm LVOT Mean V: 0.43 m/s DAYANA (VTI): 2.36 cm2 LVOT V1 VTI: 9.90 [place] [address] 2 D/M-MODE ECHOCARDIOGRAM Name: PERCY RODRIGUEZ Room: [address] IN ..#: [id number] Admission: 03/23/20 Attend Phys: Larissa Ma, Discharge: Date of : 67 Date of Service: 03/24/20 1547 Report #: [id number] MV Decel. Time: 135.20 ms MV PHT: 39.21 ms MVA (PHT): 5.61 cm2 TDI Medial E' Peter.: 0.08 m/s Lateral E' Peter.: 0.13 m/s Pulmonary Valve PV Peak Peter.: 0.53 m/s PV Peak Gr.: 1.13 mmHg Tricuspid Valve RAP Estimate: 20.00 mmHg TR Peak Gr.: 52.71 mmHg RVSP: 72.71 mmHg PA Pressure: 72.71 mmHg Left Ventricle Left ventricle is moderately dilated. There is severe diffuse hypokinesis of left ventricular wall motion. There is normal left ventricular wall thickness. Left ventricular systolic function is severely decreased. LVEF is 15-20%. Right Ventricle The right ventricle is normal size. The right ventricular systolic function is normal. Atria Left atrium is mildly dilated. The right atrium size is normal. Aortic Valve Mild aortic valve sclerosis. No aortic regurgitation is present. There is no aortic valvular stenosis. Mitral Valve The mitral valve is normal in structure. Mild to moderate mitral regurgitation. No evidence of mitral valve stenosis. Tricuspid Valve The tricuspid valve is normal in structure. Mild tricuspid regurgitation. The RVSP is 50-55 mmHg. Pulmonic Valve The pulmonary valve is normal in structure. There is no pulmonic [place]vular [place] [address] 2 D/M-MODE ECHOCARDIOGRAM Name: PERCY RODRIGUEZ Room: [address] IN ..#: [id number] Admission: 03/23/20 Attend Phys: Larissa Ma, Discharge: Date of : 67 Date of Service: 03/24/20 1547 Report #: [id number] Great Vessels The aortic root is normal in size. IVC is dilated. Pericardium There is no pericardial effusion. <Conclusion> Left ventricle is moderately dilated. There is normal left ventricular wall thickness. Left ventricular systolic function is severely decreased. LVEF is 15-20%. The right ventricle is normal size. Left atrium is mildly dilated. Mild aortic valve sclerosis. No aortic regurgitation is present. There is no aortic valvular stenosis. The mitral valve is normal in structure. Mild to moderate mitral regurgitation. The tricuspid valve is normal in structure. Mild tricuspid regurgitation. The RVSP is 50-55 mmHg. IVC is dilated. There is no pericardial effusion. There is severe diffuse hypokinesis of left ventricular wall motion. <ELECTRONICALLY SIGNED> By: Jose Santillan MD, [facility] 03/24/20 1547 1547 1547 Jose Santillan MD, [facility] /INF
[2020-03-24 16:50] VITALS: BP 124/87
[2020-03-25] VITALS: BP 112/81
[2020-03-25 04:00] VITALS: BP 108/85
[2020-03-25 05:42] LABS: HEMATOCRIT 49.5 % (42.0-52.0); HEMOGLOBIN 16.7 gm/dL (14.0-18.0); MCH 31.2 pg (26.0-34.0); MCHC 33.6 g/dL (28.0-37.0); MCV 92.9 fL (80.0-100.0); MPV 9.6 fl. (7.2-11.1); RBC 5.33 mil/uL (4.50-6.00); WBC 18.8 thou/uL (4.0-11.0)
[2020-03-25 06:11] LABS: CALCIUM 8.6 mg/dL (8.5-10.1); CREATININE 1.2 mg/dL (0.6-1.3); MAGNESIUM 1.8 mg/dL (1.8-2.4)
[2020-03-25 08:11] VITALS: BP 130/65
--- NOTE | 2020-03-25 08:39 | EKG ---
[place] [address] ELECTROCARDIOGRAM REPORT Name: PERCY RODRIGUEZ Room: [address] IN .R.#: [id number] Admission: 03/23/20 Attend Phys: Larissa Ma, Discharge: Date of : 67 Date of Service: 03/23/20 [facility] Report #: [id number] THIS REPORT FOR: //name// [facility] ED Test Date: 2020-03-23 Test Time: 18:00:04 Pat Name: PERCY RODRIGUEZ Department: Room: [facility] Gender: M Environmental Health Sanitarian: CCD : 1965 Requested By: Khai Still Order Number: [id number] MD: Pedro Godoy Measurements Intervals [place] Rate: 99 P: -76 IN: 159 QRS: 235 QRSD: 183 T: -89 QT: 426 QTc: 547 Interpretive Statements Ectopic atrial rhythm Left bundle branch block compared to ECG 12/31/2019 00:23:39 Ectopic atrial rhythm now present Electronically Signed On 03-25-2020 8:38:57 CDT by Pedro Godoy [email or web address] <ELECTRONICALLY SIGNED> By: Pedro Godoy MD, FACC 03/25/20 0838 1800 1800 Pedro Godoy MD, FAC /EPI
[2020-03-25 12:12] VITALS: BP 97/74
[2020-03-25 17:43] VITALS: BP 92/60
[2020-03-25 20:20] VITALS: BP 101/70
[2020-03-26] VITALS: BP 111/72
[2020-03-26 04:34] LABS: HEMATOCRIT 46.8 % (42.0-52.0); HEMOGLOBIN 15.9 gm/dL (14.0-18.0); MCH 31.4 pg (26.0-34.0); MCHC 33.9 g/dL (28.0-37.0); MCV 92.6 fL (80.0-100.0); MPV 8.8 fl. (7.2-11.1); RBC 5.05 mil/uL (4.50-6.00); RDW-CV 16.2 % (10.5-14.5); WBC 10.3 thou/uL (4.0-11.0)
[2020-03-26 05:10] LABS: CALCIUM 7.8 mg/dL (8.5-10.1); CREATININE 1.3 mg/dL (0.6-1.3); MAGNESIUM 1.6 mg/dL (1.8-2.4)
[2020-03-26 05:34] LABS: POTASSIUM 3.2 mmol/L (3.5-5.1)
[2020-03-26 07:30] VITALS: BP 97/71
[2020-03-26 11:30] VITALS: BP 92/67
[2020-03-26 14:45] VITALS: BP 85/63
[2020-03-26 16:00] VITALS: BP 78/49
[2020-03-26 20:10] VITALS: BP 95/63
[2020-03-27] VITALS (7 sets, daily range): BP systolic 98–110; BP diastolic 56–82
[2020-03-28] VITALS (8 sets, daily range): BP systolic 88–122; BP diastolic 56–83
[2020-03-28 05:06] LABS: POTASSIUM 4.6 mmol/L (3.5-5.1)
[2020-03-29 04:00] VITALS: BP 110/78
[2020-03-29 09:44] LABS: CALCIUM 8.3 mg/dL (8.5-10.1); CREATININE 1.4 mg/dL (0.6-1.3); POTASSIUM 4.7 mmol/L (3.5-5.1)
[2020-03-29 12:15] VITALS: BP 93/73
[2020-03-29] MEDS ORDERED: TORSEMIDE20 MG PO (15:02)
--- NOTE | 2020-03-30 09:08 | EKG ---
[place] [address] ELECTROCARDIOGRAM REPORT Name: PERCY RODRIGUEZ Room: [address] IN M.R.#: [id number] Admission: 03/23/20 Attend Phys: Larissa Ma, Discharge: 03/29/20 Date of : 67 Date of Service: 03/29/20 1656 Report #: [id number] THIS REPORT FOR: //name// [facility] Test Date: 2020-03-29 Test Time: 16:56:46 Pat Name: PERCY RODRIGUEZ Department: Room: [address] Gender: M Assembler Small Products: 14 : 1965 Requested By: Larissa Ma Order Number: [id number] MD: Pedro Godoy Measurements Intervals [place] Rate: 68 P: 44 SD: 201 QRS: -78 QRSD: 152 T: 106 QT: 500 QTc: 532 Interpretive Statements Sinus rhythm Left bundle branch block Compared to ECG 03/23/2020 18:00:04 Left bundle-branch block now present Ectopic atrial rhythm no longer present Electronically Signed On 03-30-2020 9:08:12 CDT by Pedro Godoy [email or web address] <ELECTRONICALLY SIGNED> By: Pedro Godoy MD, FAC 03/30/20 0908 1656 1656 Pedro Godoy MD, [facility] /EPI
== END 2020-03-29 17:38 | disposition home or self-care (01) | DRG 291 ==
LOC: M.ERS 17:38 → M.TBA-ER 18:59 → M.2W 18:59
PROVIDERS: Family Medicine; Registered Nurse; ADMIT Internal Medicine; ATTEND Internal Medicine
DX: I13.0 Hypertensive heart and chronic kidney disease with heart failure and stage 1 through stage 4 chronic kidney disease, or unspecified chronic kidney disease (principal); J96.01 Acute respiratory failure with hypoxia; I50.23 Acute on chronic systolic (congestive) heart failure; I25.10 Atherosclerotic heart disease of native coronary artery without angina pectoris; E78.5 Hyperlipidemia, unspecified; F19.11 Other psychoactive substance abuse, in remission; F17.210 Nicotine dependence, cigarettes, uncomplicated; N18.9 Chronic kidney disease, unspecified; I25.5 Ischemic cardiomyopathy; I34.0 Nonrheumatic mitral (valve) insufficiency; I95.9 Hypotension, unspecified; Z20.828 Contact with and (suspected) exposure to other viral communicable diseases; Z21 Asymptomatic human immunodeficiency virus [HIV] infection status; I25.2 Old myocardial infarction; Z95.5 Presence of coronary angioplasty implant and graft; Z79.01 Long term (current) use of anticoagulants; Z79.899 Other long term (current) drug therapy

== ENCOUNTER 2020-10-01 19:28 | Inpatient (IN) | payer MEDICAID ==
[~2020-10-01] VITALS: Ht 177.8 cm; Wt 79.8 kg
[~2020-10-01 19:28] MED LIST changes: +CHILDREN'S ASPI81 M1 PO; +FUROSEMIDE 40 M40 MG PO; +TORSEMIDE20 MG PO
[2020-10-01 19:38] VITALS: BP 132/96
[2020-10-01 20:01] LABS: INFLUENZA A ANTIGEN Negative (Negative); INFLUENZA B ANTIGEN Negative (Negative)
[2020-10-01 20:05] LABS: ABSOLUTE EOSINOPHILS 0.5 thou/uL (0.0-0.7); ABSOLUTE NEUTROPHILS 3.6 thou/uL (1.6-8.1); BASOPHILS 0.8 %; EOSINOPHILS 8.1 %; HEMATOCRIT 47.4 % (42.0-52.0); HEMOGLOBIN 15.8 gm/dL (14.0-18.0); LYMPHOCYTES 15.9 %; MCH 29.9 pg (26.0-34.0); MCHC 33.3 g/dL (28.0-37.0); MCV 89.6 fL (80.0-100.0); NUCLEATED RBCS 0 /100WBC; PLATELET COUNT* 135 thou/uL (150-400); POLYS 59.2 %; RDW-CV 16.6 % (10.5-14.5); WBC 6.1 thou/uL (4.0-11.0)
[2020-10-01 20:09] LABS: CALCIUM 8.7 mg/dL (8.5-10.1); CREATININE 1.5 mg/dL (0.6-1.3); POTASSIUM 4.4 mmol/L (3.5-5.1)
[2020-10-01 20:12] LABS: INR 1.2; PROTIME 12.4 Seconds (9.20-11.50)
[2020-10-01 20:20] LABS: ALBUMIN 3.2 g/dL (3.4-5.0); MAGNESIUM 1.9 mg/dL (1.8-2.4); TOTAL BILIRUBIN 1.4 mg/dL (<0.1-1.0); TOTAL PROTEIN 7.9 g/dL (6.4-8.2)
[2020-10-01 21:57] LABS: URINE BLOOD 3+ (Negative); URINE CLARITY CLEAR; URINE COLOR YELLOW; URINE GLUCOSE-RANDOM NEGATIVE (Negative); URINE KETONES NEGATIVE (Negative); URINE LEUKOCYTES-REFLEX NEGATIVE (Negative); URINE NITRITE-REFLEX NEGATIVE (Negative); URINE PROTEIN 3+ (Negative); URINE SPECIFIC GRAVITY 1.025 (1.005-1.030)
[2020-10-01 22:04] LABS: AMP/METHAMP POSITIVE (Negative); BARBITURATES Negative (Negative); BENZODIAZEPINES Negative (Negative); COCAINE Negative (Negative); METHADONE Negative (Negative); OPIATES POSITIVE (Negative); PCP Negative (Negative); THC Negative (Negative)
[2020-10-01 22:12] LABS: URINE BILIRUBIN 1+ (Negative)
[2020-10-01 22:14] LABS: ICTOTEST (BILI CONFIRMATORY) Negative (Negative)
[2020-10-01 22:35] LABS: SQUAMOUS 0-3 Few /LPF (0-3)
[2020-10-01 22:36] LABS: HYALINE CASTS 4-10 Moderate /LPF (None Seen)
[2020-10-01 22:37] LABS: URINE WBC-REFLEX 0-5 Rare /HPF (0-5)
[2020-10-01 22:38] LABS: BACTERIA-REFLEX >30 Many /HPF (None Seen); CRYSTALS None Seen /LPF (None Seen); URINE RBC >20 Many /HPF (0-2)
[2020-10-01 22:41] LABS: YEAST-REFLEX Present (None Seen)
[2020-10-01 23:55] VITALS: BP 122/94
[2020-10-02] VITALS (7 sets, daily range): BP systolic 114–138; BP diastolic 75–100
--- NOTE | 2020-10-02 09:41 | EKG ---
[place] [address] ELECTROCARDIOGRAM REPORT Name: PERCY RODRIGUEZ Room: [place] [address] ADM IN M.R.#: [id number] Admission: 10/01/20 Attend Phys: Jessica Chairez Discharge: Date of : 67 Date of Service: 10/01/201944 Report #: [id number] THIS REPORT FOR: //name// [facility] ED Test Date: 2020-10-01 Test Time: 19:45:38 Pat Name: PERCY RODRIGUEZ Department: Room: [facility] Gender: M Drop Wire Builder: SOFIE : 1965 Requested By: Shazia Estrada Order Number: [id number] MD: Tyson Delgadillo Measurements Intervals [place] Rate: 101 P: 83 [place]: 170 QRS: 184 QRSD: 150 T: -18 QT: 409 QTc: 531 Interpretive Statements Atrial-sensed ventricular-paced rhythm No further analysis attempted due to paced rhythm Compared to ECG 03/29/2020 16:56:46 Sinus rhythm no longer present paced rhythm now noted Electronically Signed On 10-02-2020 9:41:35 4TH GRADE MATH TEACHER by Tyson Delgadillo [email or web address] <ELECTRONICALLY SIGNED> By: Tyson Delgadillo MD, FACC 10/02/2041 44 44 Tyson Delgadillo MD, FAC /EPI
--- NOTE | 2020-10-02 10:45 | NUR ---
PT ORIENTED TO ROOM AND UNIT, JANA LOW AND LOCKED, SIDE RAILS UPX3, CALL LIGHT IN REACH. TELE APPLIED. WILL CONTINUE TO ASSESS.
--- NOTE | 2020-10-02 10:46 | NUR ---
ASKED OCCUPATIONAL MEDICINE PHYSICIAN TO TAKE PT TO CT FOR CTA CHEST/PE PROTOCOL. OCCUPATIONAL MEDICINE PHYSICIAN STATED THAT THE ORDER FOR CHEST CT WAS ROUTINE AND OK TO TRANSFER TO FLOOR.
[2020-10-02 17:58] LABS: CALCIUM 8.6 mg/dL (8.5-10.1); CREATININE 1.4 mg/dL (0.6-1.3); POTASSIUM 5.4 mmol/L (3.5-5.1)
--- NOTE | 2020-10-02 18:46 | NUR ---
PT C/O OF SOB AND ANXIETY. TO LEGS BECAM SLIGHTLY PURPLISH HOWEVER PT STATES THIS IS COMMON FOR HIM. CONTACT DR. RODRIGUEZ AND [facility] CONSULT. DR. TIERNEY ORDER EKG AND IV PRN MORPHINE. WILL CONTINUE TO ASSESS.
[2020-10-03 04:00] VITALS: BP 109/79
[2020-10-03 05:01] LABS: HEMATOCRIT 45.2 % (42.0-52.0); HEMOGLOBIN 15.2 gm/dL (14.0-18.0); MCH 30.2 pg (26.0-34.0); MCHC 33.6 g/dL (28.0-37.0); MCV 89.8 fL (80.0-100.0); MPV 9.4 fl. (7.2-11.1); RBC 5.03 mil/uL (4.50-6.00); RDW-CV 16.3 % (10.5-14.5); WBC 8.5 thou/uL (4.0-11.0)
[2020-10-03 05:32] LABS: ALBUMIN 2.8 g/dL (3.4-5.0); CALCIUM 8.4 mg/dL (8.5-10.1); CREATININE 1.8 mg/dL (0.6-1.3)
--- NOTE | 2020-10-03 08:04 | NUR ---
PT IS ABLE TO COMMUNICATE HIS NEEDS TO STAFF WITH MINOR DIFFICULTY; HE IS WITHDRAWLING AND CAN BE SLOW TO ANSWER AT TIMES. 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 DISTAL EXTREMITIES CAN BE CYANOTIC LOOKING AT TIMES; MDs ARE AWARE. PT HAS RESPONDED WELL TO MEDICATION INTERVANTIONS THUS FAR.
[2020-10-03 11:22] VITALS: BP 109/79
--- NOTE | 2020-10-03 12:00 | CON ---
[address] [address] CONSULTATION Name: PERCY RODRIGUEZ Room: [address] ADM IN M.R.#: [id number] Admission: 10/01/20 Attend Phys: Rick Baxter Discharge: Date of : 67 Report #: [id number] THIS REPORT FOR: cc: FAM - No family physician/PCP FAM - No family physician/PCP ~ Tyson Delgadillo MD MERGED WITH [facility] DATE OF SERVICE: 10/03/2020 CARDIOLOGY CONSULTATION HISTORY OF PRESENT ILLNESS: The patient is a 55-year-old single white male, who I was asked to see in the hospital today after he complained of being short of breath. The history is obtained from the patient. There are no family members available at this time. The patient has been hospitalized here at [facility] in the past. He has a history of an ischemic cardiomyopathy, primarily cared for at [facility]. He has had 2 coronary stents placed at [place] in the past. Denied any recent chest pain. He has a history of cardiomyopathy and had a defibrillator implanted at [facility] in May of this year. He is not very active at this time. He has a history of atrial fibrillation, although he never required cardioversion. He has been on anticoagulation. Recently, he has had increasing shortness of breath and cough. He was brought to [facility] 2 days ago and admitted. Because of his cardiomyopathy, Cardiology consultation requested. Denied any swelling of his feet, palpitations or syncope. His past medical history is significant for tonsillectomy and hypertension. Previous hospitalizations here at [facility] included a hospitalization in 07/2019 with systolic heart failure. He has a history of substance abuse in the past, including methamphetamine. He is HIV positive. He has a history of noncompliance. His last hospitalization here in [place] was in March of last year when he was found to be in heart failure. He was diuresed and sent home. In May, he had a defibrillator inserted at [facility]. The patient did take some extra torsemide at home as it helped with his shortness of breath. CURRENT MEDICATIONS: Include atorvastatin, Entresto, Plavix, carvedilol, aspirin, torsemide. ALLERGIES: He has no known drug allergies. FAMILY HISTORY: Brother had a stent. SOCIAL HISTORY: He is from his . 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 Currently lives with his parents here in [place]. Smokes half pack of cigarettes a day. No alcohol abuse. He has used amphetamines in the past. REVIEW OF SYSTEMS: No history of stroke. He has a history of COPD, [place] [address] CONSULTATION Name: PERCY RODRIGUEZ Room: [address] IN M.R.#: [id number] Admission: 10/01/20 Attend Phys: Rick Baxter Discharge: Date of : 67 Report #: [id number] inhalers. No history of liver disease, kidney disease, cancer, or psychiatric illness. He is HIV positive. He wears glasses. No chronic skin condition. PHYSICAL EXAMINATION: GENERAL: Revealed a middle-aged male, lying in bed. He appeared in no acute distress. VITAL SIGNS: He had a blood pressure of 110/80, pulse is 70, he is afebrile. HEENT: He was anicteric. Conjunctivae pink. Mucous membranes moist. NECK: Veins do not appear distended. No carotid bruits. CHEST: Decreased breath sounds at bases. HEART: Regular rate and rhythm. There is a well-healed incision of the defibrillator in the left subclavicular area. ABDOMEN: Soft. EXTREMITIES: Had no pitting edema. Dorsalis pedis pulse could not be palpated. SKIN: Cool and dry. NEUROLOGIC: Nonfocal. RADIOLOGICAL DATA: His ECG on admission showed a sinus rhythm with a ventricular paced rhythm. On the monitor, he appeared to be in sinus tachycardia. His workup, he actually had an echocardiogram done here at [facility] in March of this year that showed an ejection fraction of less than 20%, left atrial enlargement, aortic sclerosis, mild mitral regurgitation, mild tricuspid insufficiency. The patient had a portable chest x-ray on admission that showed mild cardiomegaly, scarring, but no pulmonary edema. He had venous duplex scan of the legs that showed no DVT. He had a CTA of the chest yesterday that showed no pulmonary embolus, some atelectasis. LABORATORY WORK: Sodium 135, BUN 41, creatinine 1.8, potassium was 6.0. His SGOT 292, SGPT 210, albumin 2.8, bilirubin 1.0. Troponins all 0.06. BNP 19,225. His white blood cell count 8.5, hemoglobin 15.2. His COVID antigen test was negative. Urinalysis: 3+ blood, 3+ protein. IMPRESSION AND RECOMMENDATIONS: 1. Coronary artery disease. Previous stents. No recent angina. I would continue aspirin a day. 2. History of atrial fibrillation. The patient has been anticoagulated in the past. Apparently, he is currently no longer on anticoagulation. I would continue beta-emma. 3. Ischemic cardiomyopathy. I would stop Entresto and Aldactone because of hyperkalemia. I would give Lasix. 4. Previous placement of an implantable cardioverter-defibrillator. No recent discharges. 5. Hypertension. The patient has been on an ARB and beta-emma. 6. Hyperlipidemia. The patient [place] [address] CONSULTATION Name: PERCY RODRIGUEZ Room: [address] IN M.R.#: [id number] Admission: 10/01/20 Attend Phys: Rick Baxter Discharge: Date of : 67 Report #: [id number] 7. Tobacco abuse. 8. History of substance abuse, including amphetamines. 9. Chronic obstructive pulmonary disease. The patient uses an inhaler. <ELECTRONICALLY SIGNED> By: Tyson Delgadillo MD, FACC 10/03/20 1200 1008 [id number] Delgadillo MD, FACCorey /nt
[2020-10-03 17:10] VITALS: BP 103/82
[2020-10-03 19:35] VITALS: BP 101/73
[2020-10-04] VITALS (7 sets, daily range): BP systolic 84–113; BP diastolic 49–83
--- NOTE | 2020-10-04 03:14 | NUR ---
ASSUMED CARE OF PT AT 1900. PT IS ORIENTED BUT VERY LETHARGIA AND SLEEPING. VSS. PERRLA. NO COMPLAINTS OF PAIN. PT IS IN SINUS RYTHM ON THE TELEMETRY. PT IS RESTING COMFORTABLY IN BED. RESPIRATIONS ARE EVEN AND NONLABORED. WILL CONTINUE TO MONITOR PT.
[2020-10-04 04:32] LABS: HEMOGLOBIN 14.6 gm/dL (14.0-18.0); MCH 29.4 pg (26.0-34.0); MCHC 33.1 g/dL (28.0-37.0); MCV 88.8 fL (80.0-100.0); RBC 4.96 mil/uL (4.50-6.00); RDW-CV 16.5 % (10.5-14.5); WBC 7.3 thou/uL (4.0-11.0)
[2020-10-04 05:02] LABS: ALBUMIN 2.5 g/dL (3.4-5.0); CALCIUM 8.4 mg/dL (8.5-10.1); CREATININE 1.8 mg/dL (0.6-1.3); MAGNESIUM 1.8 mg/dL (1.8-2.4); POTASSIUM 4.1 mmol/L (3.5-5.1); TOTAL BILIRUBIN 0.6 mg/dL (<0.1-1.0); TOTAL PROTEIN 6.5 g/dL (6.4-8.2)
--- NOTE | 2020-10-04 09:31 | EKG ---
[place] [address] ELECTROCARDIOGRAM REPORT Name: PERCY RODRIGUEZ Room: [address] ADM IN M.R.#: [id number] Admission: 10/01/20 Attend Phys: Jessica Chairez Discharge: Date of : 67 Date of Service: 10/04/20901 Report #: [id number] THIS REPORT FOR: //name// [facility] Test Date: 2020-10-04 Test Time: 09:02:31 Pat Name: PERCY RODRIGUEZ Department: Room: [address] Gender: M Ic Designer Gate Arrays: HERBERT : 1965 Requested By: Tyson Delgadillo Order Number: [id number] MD: Tyson Delgadillo Measurements Intervals [place] Rate: 87 P: 72 [place]: 174 QRS: 155 QRSD: 148 T: -15 QT: 452 QTc: 544 Interpretive Statements Atrial-sensed ventricular-paced rhythm No further analysis attempted due to paced rhythm Compared to ECG 10/01/2020 19:45:38 No significant changes Electronically Signed On 10-04-2020 9:31:26 PILLOW CLEANER by Tyson Delgadillo [email or web address] <ELECTRONICALLY SIGNED> By: Tyson Delgadillo MD, [facility] 10/04/2031 1 1 Tyson Delgadillo MD, [facility] /EPI
--- NOTE | 2020-10-04 09:55 | NUR ---
CM SPOKE TO THE PT TO DISCUSS CM ASSESSMENT. PT DROWSY AND SLOW TO ANSWER. PT NORMALLY ACTIVE AND INDEPENDENT WITH ADL'S. PT RESIDES AT HOME WITH FAMILY. PT USES 0 DME. CM TO F/U WITH PT TO DISCUSS COMMUNITY RESOURCES FOR SUBSTANCE ABUSE AND TREATMENT. CM WILL REMAIN AVAILABLE TO ASSIST AND FOLLOW NEEDED.
--- NOTE | 2020-10-04 13:45 | EKG ---
[place] [address] ELECTROCARDIOGRAM REPORT Name: PERCY RODRIGUEZ Room: [address] ADM IN M.R.#: [id number] Admission: 10/01/20 Attend Phys: Jessica Chairez Discharge: Date of : 67 Date of Service: 10/02/201811 Report #: [id number] THIS REPORT FOR: //name// [facility] Test Date: 2020-10-02 Test Time: 18:12:54 Pat Name: PERCY RODRIGUEZ Department: Room: [address] Gender: M Agile Project Manager: GYPSYSONDoug : 1965 Requested By: Jessica Chairez Order Number: [id number] MD: Tyson Delgadillo Measurements Intervals [place] Rate: 98 P: 76 IN: 169 QRS: 159 QRSD: 145 T: -33 QT: 421 QTc: 538 Interpretive Statements atrial sensed and Ventricular-paced rhythm No further analysis attempted due to paced rhythm Compared to ECG 10/02/2020 18:11:56 no change Electronically Signed On 10-04-2020 13:45:34 PLATEN BUILDER UP by Tyson Delgadillo [email or web address] <ELECTRONICALLY SIGNED> By: Tyson Delgadillo MD, [facility] 10/04/20 1345 181 11 Tyson Delgadillo MD, [facility] /EPI
--- NOTE | 2020-10-04 13:45 | EKG ---
[place] [address] ELECTROCARDIOGRAM REPORT Name: PERCY RODRIGUEZ Room: [address] ADM IN M.R.#: [id number] Admission: 10/01/20 Attend Phys: Jessica Chairez Discharge: Date of : 67 Date of Service: 10/02/201810 Report #: [id number] THIS REPORT FOR: //name// [facility] Test Date: 2020-10-02 Test Time: 18:11:56 Pat Name: PERCY RODRIGUEZ Department: Room: [address] Gender: M Quality Assurance Intern: TREMAINE : 1965 Requested By: Berta Aguila Order Number: [id number] MD: Tyson Delgadillo Measurements Intervals [place] Rate: 97 P: 68 [place]: 174 QRS: 166 QRSD: 155 T: -21 QT: 417 QTc: 530 Interpretive Statements Atrial-sensed ventricular-paced rhythm No further analysis attempted due to paced rhythm Compared to ECG 10/01/2020 19:45:38 No significant changes Electronically Signed On 10-04-2020 13:45:00 DAMAGED FREIGHT INSPECTOR by Tyson Delgadillo [email or web address] <ELECTRONICALLY SIGNED> By: Tyson Delgadillo MD, FAC 10/04/20 1345 181 181 Tyson Delgadillo MD, [facility] /EPI
[2020-10-05 03:30] VITALS: BP 112/81
[2020-10-05 04:32] LABS: HEMATOCRIT 40.8 % (42.0-52.0); HEMOGLOBIN 13.9 gm/dL (14.0-18.0); MCHC 34.1 g/dL (28.0-37.0); MCV 88.2 fL (80.0-100.0); MPV 8.7 fl. (7.2-11.1); RBC 4.63 mil/uL (4.50-6.00); RDW-CV 16.5 % (10.5-14.5); WBC 6.1 thou/uL (4.0-11.0)
[2020-10-05 04:49] LABS: ALBUMIN 2.5 g/dL (3.4-5.0); CALCIUM 8.7 mg/dL (8.5-10.1); CREATININE 1.5 mg/dL (0.6-1.3); MAGNESIUM 1.9 mg/dL (1.8-2.4); TOTAL BILIRUBIN 0.5 mg/dL (<0.1-1.0); TOTAL PROTEIN 6.4 g/dL (6.4-8.2)
--- NOTE | 2020-10-05 06:37 | NUR ---
ASSUMED PT CARE AT START OF SHIFT. PT VOICED NO CONCERNS THIS SHIFT. DROWSY MOST OF SHIFT BUT EASILY AROUSABLE DURINGS VS CHECKS/MED PASS. HOURLY ROUNDING COMPLETED. CONTINUES ON DOBUTAMINE DRIP. V PACED ON CENTER MGR. CALL LIGHT WITHIN REACH.
[2020-10-05 08:00] VITALS: BP 11/72
[2020-10-05 11:40] VITALS: BP 131/88
--- NOTE | 2020-10-05 13:35 | NUR ---
CM INFORMED DURING PRIME ROUNDING OF THE PLAN OF CARE FOR THE PT. PT REMAINS ON IV FLUIDS. PLAN FOR PT TO INCREASE ACTIVITY. CM WILL REMAIN AVAILABLE TO ASSIST AND FOLLOW FOR D/C PLANNING NEEDED.
[2020-10-05 16:45] VITALS: BP 129/86
[2020-10-05 21:00] VITALS: BP 108/73
--- NOTE | 2020-10-05 23:00 | NUR ---
PT RESTING. NO COMPLAINTS. VSS ON RA. PT MORE ALERT,ABLE TO CONVERSE,MAKE JOKES AND TALK FRANKLY IN REFERENCE TO SOME BEHAVIORS HE HAS BEEN DEMONSTRATED RECENTLY.BP IS MAINTAINING WITH NEW DOBUTAMINE DOSAGE.DID HAVE INCIDENT WITH 2000 DOBUTAMINE INFUSION THAT REMAINS UNEXPLAINED. BAG WAS HUNG AND SCANNED APPROPRIATELY,VTBI ADJUSTED IN PUMP DOSAGE AND STARTED. AT 2200 IV PUMP WAS FOUND BEEPING AND BAG HUNG AT 1999 WAS EMPTY. FLOOR WAS STICKY BUT DID NOT EXPLAIN 250 ML LOSS. PHARMACY CALLED AND NOTIFIED.PT VSS,REMAINS ALERT AND CONVERSING.IV PATENT. PT APPEARS TO BE SR,BBB ON MONITOR WITHOUT PACER CAPTURING.NOTHING FURTHER AT THIS TIME.CLWR.WCTM
[2020-10-06] VITALS (7 sets, daily range): BP systolic 102–130; BP diastolic 67–86
--- NOTE | 2020-10-06 05:02 | NUR ---
No acute event this shift. Pt denies pain. Pt VS stable. Pt tracing sinus rhythm BBB/ V paced at times on tele. Pt more alert. Call light within reach, safety precaution in placed.
--- NOTE | 2020-10-06 11:07 | NUR ---
CM INFORMED DURING PRIME ROUNDING OF THE PLAN OF CARE FOR THE PT. PLAN FOR PT TO POSSIBLY D/C TOMORROW. CM WILL REMAIN AVAILABLE TO ASSIST AND FOLLOW NEEDED.
[2020-10-07 04:00] VITALS: BP 100/61
[2020-10-07 05:19] LABS: CALCIUM 8.7 mg/dL (8.5-10.1); CREATININE 1.3 mg/dL (0.6-1.3); MAGNESIUM 1.9 mg/dL (1.8-2.4)
--- NOTE | 2020-10-07 07:57 | NUR ---
alert and oriented x 4. Up independently in room. VS stable. Roomair sat 93-96%. He denies discomfort. He slept well. Monitor rhythym V-paced.
[2020-10-07 08:00] VITALS: BP 97/56
[2020-10-07] MEDS ORDERED: ATORVASTATIN CA20 MG PO (08:34)
[2020-10-07] MEDS ORDERED: CARVEDILOL3.125 MG PO (08:34)
[2020-10-07] MEDS ORDERED: ENTRESTO 24 MG1 EACH PO (08:34)
[2020-10-07] MEDS ORDERED: TORSEMIDE20 MG PO (08:34)
[2020-10-07] MEDS ORDERED: CETIRIZINE HCL5 MG PO (08:34)
[2020-10-07] MEDS ORDERED: XARELTO20 MG PO (08:34)
[2020-10-07] MEDS ORDERED: ASA81BEC PO (08:34)
[2020-10-07] MEDS ORDERED: KLOR-CON M2020 MEQ PO (08:34)
--- NOTE | 2020-10-07 11:23 | NUR ---
CM INFORMED DURING PRIME ROUNDING OF THE PLAN OF CARE FOR THE PT. PLAN FOR PT TO POSSIBILY D/C HOME TODAY WITH SELF-CARE PENDING CARDIOLOGY'S DECISION. CM WILL REMAIN AVAILABLE TO ASSIST AND FOLLOW NEEDED.
[2020-10-07 11:43] VITALS: BP 97/56
[2020-10-07 12:07] VITALS: BP 110/77
== END 2020-10-07 13:20 | disposition home or self-care (01) | DRG 177 ==
LOC: M.ERS 19:28 → M.TBA-ER 23:00 → M.2W 10-02 10:32
PROVIDERS: Emergency Medicine; Family Medicine; Internal Medicine; ADMIT Internal Medicine; ATTEND Internal Medicine
PROC: 5A0935A Assistance with Respiratory Ventilation, Less than 24 Consecutive Hours, High Flow/Velocity Cannula (ICD-10-PCS; principal; 2020-10-02)
DX: J15.6 Pneumonia due to other Gram-negative bacteria (principal); J96.01 Acute respiratory failure with hypoxia; I50.43 Acute on chronic combined systolic (congestive) and diastolic (congestive) heart failure; N17.0 Acute kidney failure with tubular necrosis; J44.0 Chronic obstructive pulmonary disease with (acute) lower respiratory infection; I25.10 Atherosclerotic heart disease of native coronary artery without angina pectoris; I11.0 Hypertensive heart disease with heart failure; I25.5 Ischemic cardiomyopathy; E78.5 Hyperlipidemia, unspecified; F17.210 Nicotine dependence, cigarettes, uncomplicated; F15.10 Other stimulant abuse, uncomplicated; E87.5 Hyperkalemia; F32.9 Major depressive disorder, single episode, unspecified; F41.9 Anxiety disorder, unspecified; F19.10 Other psychoactive substance abuse, uncomplicated; I48.0 Paroxysmal atrial fibrillation; I95.2 Hypotension due to drugs; Z95.5 Presence of coronary angioplasty implant and graft; I25.2 Old myocardial infarction; Z95.810 Presence of automatic (implantable) cardiac defibrillator; Z91.14 Patient's other noncompliance with medication regimen; Z79.899 Other long term (current) drug therapy; Z20.822 Contact with and (suspected) exposure to COVID-19